=== PATIENT | female | born 1995 | race Caucasian/White ===

== ENCOUNTER 2019-07-18 19:24 | Emergency (ER) | payer MEDICAID ==
[~2019-07-18] VITALS: Ht 165.1 cm; Wt 100.0 kg
[2019-07-18] MEDS ORDERED: TRAZ-186 PO (19:40)
[2019-07-18] MEDS ORDERED: BECL10.6 IH (19:40)
[2019-07-18] MEDS ORDERED: ESCI20TA PO (19:40)
[2019-07-18] MEDS ORDERED: LEVO125 PO (19:40)
[2019-07-18] MEDS ORDERED: TOPI100T37 PO (19:40)
[2019-07-18] MEDS ORDERED: IPRATROPIUM BROMIDE 0.5 MG/2.5 ML NEB SOLUTION NEB ONE (19:45)
[2019-07-18] MEDS ORDERED: BECLOMETHASONE DIPR HFA 80 MCG/PUFF 10.6 GM INHALER IH ONE (19:45)
[2019-07-18] MEDS ORDERED: ALBUTEROL SULFATE 5 MG/ML 20 ML NEB SOLN [BULK] NEB ONE (19:45)
[2019-07-18] MEDS ORDERED: ALBUTEROL SULFATE HFA 90 MCG/PUFF 8 GM INHALER IH ONE (19:45)
[2019-07-18] MEDS ORDERED: PredniSONE 20 MG TABLET PO ONE (19:45)
[2019-07-18] MEDS ORDERED: BECL10.62 IH (19:46)
[2019-07-18 20:18] VITALS: BP 114/41
== END 2019-07-18 20:27 | disposition home or self-care (01) ==
LOC: EMS 19:25 → EDSEX 19:25 → EMS 20:27
DX: J45.901 Unspecified asthma with (acute) exacerbation (principal)
CPT/HCPCS: 94640; 99284; J7512; J3535